=== PATIENT | female | born 1960 | race African-American/Black ===

== ENCOUNTER → 2023-02-13 15:16 | Outpatient (CLI) | payer OTHER, SELFPAY ==
--- NOTE | ~2023-02-13 | US_ITS ---
EXAMINATION: US transvaginal DATE: 02/13/2023 15:37 INDICATION: Postmenopausal bleeding Comparison:No prior studies for comparison. TECHNIQUE: Multiple transabdominal and endovaginal sonographic images of the pelvis performed. FINDINGS: The uterus measures 5.9 x 3.1 x 3.9 cm. There is a uterine fibroid measuring 1.7 cm. The en dometrial complex measures 3 mm. The ovaries are not visualized. There is no free fluid in the pelvis. There are no abnormal masses seen on either side. IMPRESSION: 1. Uterine Fibroid measuring 1.7 cm. Reviewed, dictated and finalized at location []
== END ==
PROVIDERS: PCP Obstetrics & Gynecology Gynecology; Visit Provider Nurse Practitioner
DX: N95.0 Postmenopausal bleeding (principal); D25.9 Leiomyoma of uterus, unspecified
CPT/HCPCS: 76830

== ENCOUNTER 2023-04-18 11:02 | Outpatient (CLI) | payer OTHER, SELFPAY ==
[2023-04-18 11:26] LABS: Anion Gap 2 mmol/L (8-16); Blood Urea Nitrogen 23 mg/dL (7-17); Calcium 9.6 mg/dL (8.4-10.2); Carbon Dioxide 31 mmol/L (22-30); Chloride 106 mmol/L (98-107); Estimated Glomerular Filt Rate 50; Glucose 93 mg/dL (65-110); Partial Thromboplastin Time 27.4 SECONDS (22.3-36.8); Potassium 4.1 mmol/L (3.4-5.0); Prothrombin Time 13.3 Seconds (11.1-14.7); Sodium 139 mmol/L (137-145)
== END 2023-04-18 11:03 | disposition home or self-care (01) ==
LOC: ANHLAB 11:04
PROVIDERS: PCP Family Medicine; Visit Provider Anesthesiology
DX: N28.9 Disorder of kidney and ureter, unspecified (principal); Z01.818 Encounter for other preprocedural examination
CPT/HCPCS: 36415; 80048; 85610; 85730

== ENCOUNTER 2023-04-20 01:30 | Day surgery (SDC) | payer OTHER, SELFPAY ==
[2023-04-17 13:02] VITALS: BMI 43.7
--- NOTE | 2023-04-17 13:25 | PC.NURSE ---
Report to the Outpatient Waiting Room, entrance under the green pavilion located off [facility], at time _6:00AM on date __04/20/23 . Planned Procedure Time: __7:30AM . Time changes happen often and if your time is changed the preop area will call you the afternoon before. - You and your visitor will be asked to self-screen and do not enter if you have any COVID symptoms. - A mask is optional within the hospital at this time. Patients may have clear liquids (water, carbonated beverages, clear teas, apple juice) until 3 hours prior to surgery with a maximum of 20 ounces. - No food from midnight until time of surgery Take the following medications with a SIP of water the morning of surgery: __VERAPAMIL DO NOT STOP ANY OF YOUR OTHER PRESCRIPTION MEDICATIONS PRIOR TO SURGERY ?EXCEPT THE FOLLOWING Medications to discontinue per physician ___HOLD ASPIRIN AND PLAVIX PER DR DAVIDSON-PATIENT CALLING OFFICE TO CLARIFY. HOLD ALL VITAMINS/SUPPLEMENTS STARTING NOW- 04/17/23. Please no make-up, nail welsh, hairspray, perfume, deodorant, or body powder the day of surgery. No jewelry (including any body piercings) or valuables the day of surgery, leave them at home. Please take a shower or bath the night before, or the morning of, surgery with an antibacterial soap. Wear comfortable, loose fitting clothing. Children are encouraged to wear pajamas. - Jewelry must be removed prior to entering the operating room. Rings and piercings that are not removed may be cut off. - The hospital will not accept responsibility for valuables. - Please leave all valuables, including medications, at home the day of surgery. If you are going home after surgery, a licensed hydraulic lift driver must drive you home. - NO public transportation without another adult if you receive anesthesia. - We recommend that an adult stay with you for 24 hours following discharge. - We also recommend that you do not drive, make important decision, drink alcoholic beverages, or take any drugs that were not prescribed by your health care provider for at least 24 hours after your discharge time. Follow any additional instructions given to you from your surgeon. If you or anyone in your household have experienced Covid symptoms in the past week, please notify your surgeon or the nurse liaison at the phone number below for possible testing. Telephone instructions given to __PATIENT and asked if any additional questions and then verbalized understanding. Patient advised to call surgeon office or pre surgery nurse liaison [phone] if any additional questions.
[2023-04-20 06:05] VITALS: BP 152/86; PULSE 83; RESP 16; TEMP 36.1; O2SAT 100
[2023-04-20 06:10] VITALS: BMI 43.0
[2023-04-20] MEDS: LACTATED RINGERS 1,000 ML 30 ML IV CONT (07:00)
[2023-04-20] MEDS: ACETAMINOPHEN 500 MG TABLET 1000 MG PO (07:24)
--- NOTE | 2023-04-20 07:28 | WPDHPUPDATE1 ---
History and Physical Update Update Date/Time: 04/20/23 07:28 History and Physical has been reviewed, including an updated exam of the patient. There are NO changes in the patient's condition. Risks, benefits, and alternatives have been discussed and questions answered. Patient agrees to proceed with procedure.
--- NOTE | 2023-04-20 07:28 | PM.HPGS ---
History of Present Illness History of Present Illness Consent: Risks, benefits, and alternatives have been discussed and questions answered. Patient agrees to proceed with procedure. Chief complaint: post menopausal bleeding Narrative: Rajinder Crisostomo is a 62 year old female with several episodes of bleeding after December of 2022. Pelvic ultrasound was normal but due to several episodes of bleeding was recommended to undergo D&C hysteroscopy. Risks of infection, bleeding, and perforation are reviewed. Possible pathology was discussed. Patient voices understanding and agrees to proceed. Review of Systems Review of Systems: not repeated day of surgery; patient states no changes in status [facility] Past Medical History Medical History (Updated 04/20/23 @ 07:34 by Peri Rodriguez MD) Diabetes HTN (hypertension) TIA (transient ischemic attack) 2016 Surgical History Surgical History (Updated 04/20/23 @ 07:33 by Peri Rodriguez MD) History of bilateral carotid endarterectomy History of brain surgery brain stent 03/18 &07/18 History of D&C in the for heavy cycles History of total left knee replacement History of total right knee replacement (TKR) Social History Social History Smoking status: Never smoker Substance use: never Living arrangements: with family Additional living arrangements comments: SISTER Spiritual care concerns: No Meds Home Medications and Allergies Home Medications Medication Instructions Recorded Confirmed Type aspirin 81 mg tablet,delayed 81 mg PO DAILY 04/17/23 04/20/23 History release atorvastatin 40 mg tablet 40 mg PO HS 04/17/23 04/17/23 History cholecalciferol (vitamin D3) 50 50 mcg PO DAILY 04/17/23 04/20/23 History mcg (2,000 unit) capsule clopidogrel 75 mg tablet 75 mg PO QAM 04/17/23 04/20/23 History dapagliflozin propanediol 10 mg 10 mg PO DAILY 04/17/23 04/17/23 History tablet (Farxiga) losartan 100 mg tablet 100 mg PO QAM 04/17/23 04/17/23 History verapamil 240 mg tablet,extended 240 mg PO QAM 04/17/23 04/17/23 History release vitamin B complex 1 tablet PO DAILY 04/17/23 04/20/23 History vitamin K2 (MK-4) 100 mcg tablet 100 mcg PO DAILY 04/17/23 04/20/23 History Allergies Allergy/AdvReac Type Severity Reaction Status Date / Time lisinopril AdvReac Cough Verified 04/20/23 07:20 Exam Const: General: healthy appearing and alert Nutritional Appearance: obese ( BMI 45.6) Orientation/consciousness: patient oriented x3 Resp: Effort & Inspection: normal respiratory effort GI: GI Palp: Yes Soft to palpation, No Tenderness to palpation present (GI) and No Palpable mass present : External Female Exam: normal external appearance Speculum Exam - Vagina: normal appearance of the vagina and normal vaginal discharge Speculum Exam - Cervix: normal appearance of the cervix Bimanual exam- vagina & uterus: uterine size normal and consistency normal Bimanual Exam- Adnexa, other: normal adnexae and No adnexal tenderness Neuro: General: patient oriented x3 Assessment and Plan Assessment and plan (1) Post-menopausal bleeding: Code(s): N95.0 - Postmenopausal bleeding Status: Acute Assessment and Plan: plan to proceed with D&C hysteroscopy
--- NOTE | 2023-04-20 08:05 | WPDANESEPPF ---
Anes - Initial Pre Proc Eval Procedure: Operation Date: 04/20/23 09:00 Proposed Procedures p Hysteroscopy Dilation and Curettage - Peri Rodriguez MD Date/Time: 04/20/23 08:05 Surgeon: Peri Rodriguez MD Pre Op Diagnosis: post menopausal bleeding Patient Data Age: 62 Gender: F Height: 1.6 m Weight: 110.2 kg Last Vital Signs Temp 36.1 C L 04/20/23 06:05 Pulse 83 04/20/23 06:05 Resp 16 04/20/23 06:05 BP 152/86 H 04/20/23 06:05 Pulse Ox 100 04/20/23 06:05 O2 Del Method Room Air 04/20/23 06:05 Allergies Allergy/AdvReac Type Severity Reaction Status Date / Time lisinopril AdvReac Cough Verified 04/20/23 07:20 Home Medications Medication Instructions Recorded Confirmed Type aspirin 81 mg tablet,delayed 81 mg PO DAILY 04/17/23 04/20/23 History release atorvastatin 40 mg tablet 40 mg PO HS 04/17/23 04/17/23 History cholecalciferol (vitamin D3) 50 50 mcg PO DAILY 04/17/23 04/20/23 History mcg (2,000 unit) capsule clopidogrel 75 mg tablet 75 mg PO QAM 04/17/23 04/20/23 History dapagliflozin propanediol 10 mg 10 mg PO DAILY 04/17/23 04/17/23 History tablet (Farxiga) losartan 100 mg tablet 100 mg PO QAM 04/17/23 04/17/23 History verapamil 240 mg tablet,extended 240 mg PO QAM 04/17/23 04/17/23 History release vitamin B complex 1 tablet PO DAILY 04/17/23 04/20/23 History vitamin K2 (MK-4) 100 mcg tablet 100 mcg PO DAILY 04/17/23 04/20/23 History Patient hx anesthesia problems: none Family hx anesthesia problems: none Results Review: All pre-operative results and documents have been reviewed as part of the pre-operative evaluation. [facility] Past Medical History Medical History Diabetes HTN (hypertension) TIA (transient ischemic attack) 2017 Surgical History Surgical History History of bilateral carotid endarterectomy History of brain surgery brain stent 03/18 &07/18 History of D&C in the for heavy cycles History of total left knee replacement History of total right knee replacement (TKR) Social History Social History Smoking status: Never smoker Substance use: never Living arrangements: with family Additional living arrangements comments: SISTER Spiritual care concerns: No Anes - Eval Final PreProcedure Day of Procedure 04/20/23 08:05 Patient weight: morbidly obese Heart: regular rate and rhythm Lungs: clear to auscultation Airway: Mallampati scale class II Neurological: alert and oriented Last oral intake: >/= 8 hours ASA classification: III Emergent: no Anesthetic plan: proceed Anesthesia type and monitoring: general GIVS and standard monitoring Results Review: All pre-operative results and documents have been reviewed as part of the pre-operative evaluation. Informed Consent: The patient's anesthetic plan and its attendant risks and benefits were discussed with the patient/family/POA. Questions were solicited and answers provided to the satisfaction of the patient/family/POA.
[2023-04-20 09:33] VITALS: BP 128/58; PULSE 74; RESP 16; O2SAT 100
--- NOTE | 2023-04-20 09:41 | W.PM.PROC2 ---
Procedure Note - Detailed Date of Procedure 04/20/23 Pre-op Diagnosis post menopausal bleeding Post-op Diagnosis Same Procedure Performed D&C hysteroscopy Surgeon Peri Rodriguez MD Anesthesia MAC Findings Pinpoint cervical os, atrophic endometrium with scarred anterior fundus near the right cornea, no discrete lesion. Description of Procedure The patient is taken to the operating room and placed under anesthesia in the dorsal lithotomy position. She was prepped and draped in usual sterile fashion. Blanchard speculum was placed in the vagina and the cervix grasped on the anterior lip with a tenaculum. The cervix is noted to be pinpoint and the sound does not pass the external os. The 4mm Hegar dilator is used to open the cervix and the cervix is dilated to a 6 Hegar. The diagnostic hysteroscope was then placed with the above-stated findings. With no abnormalities noted the hysteroscope was removed and the small sharp curette is used to curette the endometrium until a good uterine cry was noted in all areas. Minimal material was obtained consistent with the visual appearance. All instruments are removed. Sponge, needle, and instrument counts are correct per the OR staff. Patient was awakened from anesthesia and taken to recovery in stable condition. Estimated Blood Loss 5 Urine Output -300.0 Drains No Packing No Pathology Yes (Endometrial curettings) Complications No immediate complications Condition Stable Disposition PACU
[2023-04-20 10:00] VITALS: BP 132/61; PULSE 77; RESP 16; O2SAT 100
[2023-04-20 10:20] VITALS: BP 158/67; PULSE 79; RESP 16
== END 2023-04-20 10:37 | disposition home or self-care (01) ==
PROVIDERS: PCP Family Medicine; Visit Provider Obstetrics & Gynecology Gynecology
PROC: 0U5B8ZZ Destruction of Endometrium, Via Natural or Artificial Opening Endoscopic (ICD-10-PCS; CPT 58563; principal; 2023-04-20 09:00)
DX: N95.0 Postmenopausal bleeding (principal); N85.8 Other specified noninflammatory disorders of uterus; E11.9 Type 2 diabetes mellitus without complications; I10 Essential (primary) hypertension; Z86.73 Personal history of transient ischemic attack (TIA), and cerebral infarction without residual deficits; E66.01 Morbid (severe) obesity due to excess calories; Z68.41 Body mass index [BMI] 40.0-44.9, adult; Z79.82 Long term (current) use of aspirin; Z79.02 Long term (current) use of antithrombotics/antiplatelets; Z79.84 Long term (current) use of oral hypoglycemic drugs
CPT/HCPCS: 58558; 88305; A9270; J1100; J2250; J2405; J2704; J3010; J7120